=== PATIENT | female | born 1975 | race Caucasian/White ===

== ENCOUNTER 2017-01-06 06:51 | Emergency (ER) | payer MEDICAID, OTHER ==
[~2017-01-06] VITALS: Ht 154.9 cm; Wt 62.9 kg
[2017-01-06] MEDS ORDERED: MAALOX/HYOSCYAMINE/LIDOCAINE 45 ML BTL ONE (07:22)
[2017-01-06] MEDS ORDERED: MAALOX/HYOSCYAMINE/LIDOCAINE 45 ML BTL PO ONE (07:30)
[2017-01-06 07:47] LABS: BLOOD UREA NITROGEN 19 mg/dL (7-18)
[2017-01-06 07:54] LABS: ASPARTATE AMINO TRANSFERASE 10 U/L (15-37)
[2017-01-06 09:42] VITALS: BP 100/51
== END 2017-01-06 09:48 | disposition home or self-care (01) ==
LOC: ED 07:45
DX: K29.50 Unspecified chronic gastritis without bleeding (principal); G89.29 Other chronic pain; R10.13 Epigastric pain; Z90.49 Acquired absence of other specified parts of digestive tract
CPT/HCPCS: 36415; 74020; 80053; 81003; 83690; 84703; 85025; 93005; 93970; 99285

== ENCOUNTER 2017-04-15 19:10 | Emergency (ER) | payer MEDICAID, OTHER ==
[~2017-04-15] VITALS: Ht 144.8 cm; Wt 63.1 kg
[2017-04-15 20:12] LABS: HCG UR LOT HCG7030192
[2017-04-15 20:28] LABS: HCG UR OBC PASS
[2017-04-15 21:05] VITALS: BP 130/79
== END 2017-04-15 21:28 | disposition home or self-care (01) ==
LOC: ED 21:14
DX: N76.0 Acute vaginitis (principal); R31.29 Other microscopic hematuria; E11.9 Type 2 diabetes mellitus without complications
CPT/HCPCS: 81001; 81025; 87086; 87210; 87491; 87591; 87808; 99284

== ENCOUNTER 2019-05-23 12:30 | Emergency (ER) | payer OTHER ==
[~2019-05-23] VITALS: Ht 154.9 cm; Wt 62.3 kg
--- NOTE | 2019-05-23 13:41 | NUR ---
"I HAVE BEEN HAVING A REALLY BAD COUGH, I BEEN VOMITING. 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 TMAX 101 YESTERDAY. HAD FLU SHOT THIS YEAR. 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
[2019-05-23 13:45] LABS: BASOPHILS # (AUTO) 0.04 x10^3/uL (0-0.1); BASOPHILS % (AUTO) 1 % (0-1); EOSINOPHILS % (AUTO) 3 % (1-7); LYMPHOCYTES # (AUTO) 2.26 x10^3/uL (1-3.4); LYMPHOCYTES % (AUTO) 28 % (22-44); MD NO; MEAN CORPUSCULAR HEMOGLOBIN 32.2 pg (27.0-34.8); MEAN CORPUSCULAR VOLUME 94.8 fL (80-100); MEAN PLATELET VOLUME 9.1 fL (7.4-10.4); MONOCYTES # (AUTO) 0.54 x10^3/uL (0.2-0.8); MONOCYTES % (AUTO) 7 % (2-9); NEUTROPHILS # (AUTO) 5.15 x10^3/uL (1.8-6.8); NEUTROPHILS % (AUTO) 63 % (42-75); PLATELET COUNT 255 x10^3/uL (130-400); RED BLOOD COUNT 3.96 x10^6/uL (3.82-5.3); RED CELL DISTRIBUTION WIDTH 12.5 % (9.6-15.2)
[2019-05-23 13:57] LABS: ALANINE AMINOTRANSFERASE 31 U/L (12-78); ALBUMIN 3.7 g/dL (3.4-5.0); ANION GAP 9 mmol/L (5-15); CALCIUM 8.7 mg/dL (8.5-10.1); CHLORIDE 105 mmol/L (98-107); CREATININE 0.92 mg/dL (0.55-1.02)
[2019-05-23 14:02] LABS: ALKALINE PHOSPHATASE 70 U/L (45-117); BILIRUBIN,TOTAL 0.7 mg/dL (0.2-1.0); TOTAL PROTEIN 7.6 g/dL (6.4-8.2); TROPONIN I < 0.015 ng/mL (0.000-0.045)
[2019-05-23 14:45] VITALS: BP 103/49
== END 2019-05-23 15:16 | disposition home or self-care (01) ==
LOC: ED 13:25
DX: J06.9 Acute upper respiratory infection, unspecified (principal); E11.9 Type 2 diabetes mellitus without complications; Z90.49 Acquired absence of other specified parts of digestive tract
CPT/HCPCS: 36415; 71045; 80053; 83880; 84484; 85025; 93005; 99284